=== PATIENT | male | born 1965 | race Caucasian/White ===

== ENCOUNTER 2024-05-14 08:17 | Day surgery (SDC) | payer OTHER, SELFPAY ==
--- NOTE | 2024-05-13 06:16 | W.PM.DSUDISC ---
Date of service: 05/14/24 Discharge Plan Disposition Patient Disposition: Home Condition: Good Discharge Details Reason For Visit: screening colonoscopy Attending Provider: Ruben Gutiérrez Primary Care Provider: Kayla Burns Home Meds and New Rx's Prescriptions: Continued atorvastatin 80 mg tablet 80 mg PO QHS Discontinued bisacodyl [Dulcolax (bisacodyl)] 5 mg tablet,delayed release (DR/EC) 5 mg PO ONCE Qty: 4 0RF Rx Instructions: Take per colonoscopy instructions provided by ordering providers office polyethylene glycol 3350 17 gram/dose powder 17 g PO ONCE Qty: 238 0RF Rx Instructions: Take per colonoscopy instructions provided by ordering providers office No Action aspirin [Aspirin Childrens] 81 mg tablet,chewable 81 mg PO DAILY Discharge Instructions Instructions: Colon polyps, Diverticulosis Additional Instructions: Serafin, I enjoyed meeting you today, and I hope you are comfortable through the colonoscopy. Everything went very smoothly. Your prep was excellent and I could see everything fine. I did find to remove a single small polyp from your rectum today. This will be sent off for testing since polyps 2, different types, and we use the information from that analysis to help guide the timing of future colonoscopies. Incidentally, you also have some diverticulosis. Diverticula are weak spots in the muscular layer of the colon wall that caused the inside lining (also known as mucosa) to pooch or pocket outward into the wall of the colon. These can get infected or inflamed during flareups that refer to as diverticulitis. Hopefully, years will never bother you. I will attach some basic information here about colon rectal polyps, as well as diverticulosis. If you need anything or have any questions, please do not hesitate to call, otherwise we will be in touch once the polyp report is complete. 1. If tolerated, consume a soft, low fiber diet for 1-2 days. 2. Do not drive, drink alcohol, operate machinery, make critical decisions, or do activities that require coordination or balance for 24 hours. 3. Because air was put into your colon during the procedure, expelling air from your rectum (passing gas or farting) is normal. 4. You may not have a bowel movement for 1-3 days because of the colonoscopy prep. This is normal. 5. Go directly to the emergency room if you notice any of the following: Develop chills (warm to touch), or if you have a thermometer and your temperature is above 101 Difficulty breathing or difficultly swallowing Persistent vomiting Severe abdominal pain, other than gas cramps Severe chest pain Black, tarry stools Any bleeding ? exceeding one tablespoon 6. Call your physician if the site where your intravenous was started becomes red, swollen, painful, and warm to touch. 7. Your physician has reviewed your pre-procedure medications. Please continue to take those medications as previously ordered. You will be given specific information/education regarding any changes to your medications before leaving. Stand Alone Forms: Anesthesia Discharge Inst., Efra Hoffman (DSU) Activity:: Activity as Tolerated Diet:: As Tolerated Discharge Orders Discharge Orders: Discharge Order (Routine); Ordered 05/13/24 Ordered By: Ruben Gutiérrez DS: Diagnosis Discharge Diagnosis (1) Encounter for screening colonoscopy: Status: Acute Asessment and Plan: Follow-up on polypectomy results
--- NOTE | 2024-05-13 06:17 | COLE_ITS ---
Date of service: 05/14/24 Time of Service: 10:24 Colonoscopy Report Date of procedure: 05/14/24 Pre-op diagnosis general: screening colonoscopy Post-op diagnosis procedure note: other (Diverticulosis, rectal polyp) Procedure: colonoscopy with polypectomy Surgeon: Ruben Gutiérrez Anesthesia Type: General:No Airway Estimated blood loss (mL): 5 Pathology: other (0.25 cm pedunculated rectal polyp) Complications: None Disposition: same day Indications: Serafin is a 59 year old man with a history of sessile serrated adenoma who needs his next screening colonoscopy Prep: Miralax/Dulcolax Procedure Start Time: 09:49 Procedure End Time: 10:12 Retraction Time: 15 Findings: Sigmoid diverticulosis, 0.25 cm pedunculated rectal polyp Procedure Description: After the induction of anesthesia, and with Serafin in left lateral decubitus position, I began by performing an external anorectal exam.? Perineum and skin were normal, as was the anal verge.? There was no evidence of external hemorrhoids.? Next, I performed a digital rectal exam.? I did not appreciate any abnormal findings.? Next, I advanced a colonoscope into the rectal vault.? I performed retroflexion.? This appeared normal.? Using insufflation, I then advanced the colonoscope beyond the rectal folds and into the sigmoid colon before advancing towards the cecum.? The quality of the prep was excellent.? The scope was noted to be in the cecum by identification of the ileocecal valve and appendiceal orifice.? I then began withdrawing the colonoscope using repeated irrigation as necessary for full evaluation of the colonic mucosa. There is sigmoid diverticulosis. ?Once the scope was withdrawn to the level of the rectum, great care was taken to examine portions of the rectal folds. In the lower portion of the rectal vault was a 0.25 cm pedunculated polyp. This was re moved with cold forceps polypectomy with minimal bleeding.? Finally, the scope was withdrawn and the patient was brought to the same-day surgery recovery unit as the anesthetic wore off. ?The findings and instructions were shared with the patient prior to discharge. [place] Bowel Prep [place] Bowel Prep Right Colon: 3 Left Colon: 3 Transverse Colon: 3 Total Score: 9
[2024-05-14 08:45] VITALS: BP 159/109; PULSE 79; RESP 16; TEMP 36.7; O2SAT 96
[2024-05-14] MEDS: Lactated Ringers 1,000 ML 80 ML IV (09:12)
--- NOTE | 2024-05-14 09:30 | ANES.PREOP_ITS ---
General Info Date of Service Date Performed: 05/14/24 Height: 5 ft 11 in Weight: 86 kg Body Mass Index (BMI): 26.4 Surgical Procedure: Operation Date: 05/14/24 09:50 Proposed Procedure Side Surgeon p Colonoscopy Ruben Gutiérrez MD Meds Allergies and Home Medications Allergies Allergy/AdvReac Type Severity Reaction Status Date / Time hyoscyamine AdvReac Severe Other (See Verified 05/14/24 08:42 Comment) Home Medication ?Medication ?Instructions ?Recorded atorvastatin 80 mg tablet 80 mg PO QHS 04/16/24 aspirin 81 mg chewable tablet 81 mg PO DAILY 05/14/24 (Aspirin Childrens) Current Visit Medications: Current Medications Generic Name Dose Route Start Last Admin Trade Name Freq PRN Reason Stop Dose Admin Ringer's Solution 1,000 mls @ 80 mls/hr 05/14/24 06:00 05/14/24 09:12 IV 05/14/24 23:59 80 mls/hr INFUSION ROSEY Administration IV Miscellaneous Supplies 1 each 05/14/24 06:00 Iv Access IV 05/14/24 23:59 DIRECTED ROSEY Ondansetron HCl 4 mg 05/13/24 06:15 Ondansetron 4 Mg/2 Ml Vial IVP 06/12/24 06:14 Q4H PRN PRN Nausea / Vomiting Sodium Chloride 0 ml 05/14/24 06:00 Normal Saline Flush 10 Ml Syr IV 05/14/24 23:59 PRN PRN Sodium Chloride 0 ml 05/14/24 06:00 Normal Saline 10 Ml Vial IJ 05/14/24 23:59 DIRECTED PRN Sterile Water 0 ml 05/14/24 06:00 Water,Injection,Sterile 10 Ml Vial IJ 05/14/24 23:59 DIRECTED PRN PFSH Active Problems Active Problems: Problem Status Onset Code Encounter for screening colonoscopy Acute Z12.11 Medical History Medical History Hypercholesteremia Family history of colon cancer in mother Adenomatous colon polyp Surgical History Surgical History History of appendectomy History of inguinal hernia repair History of colonoscopy with polypectomy (~2017) per referral done at [facility] Tobacco Smoking/Tobacco Use Status: Former Tobacco Use Alcohol Alcohol Intake: current Alcohol intake frequency: 0-2 drinks per day Alcohol type: wine Substance Use Substance use: Never Substance use type: does not use Details: alcohol: t-3, couple glasses Vital Signs and Lab Results Vital Signs Most Recent Vital Signs in EMR: Most Recent Vital Signs Temp Pulse Resp BP Pulse Ox 36.7 C 79 16 159/109 H 96 05/14/24 08:45 05/14/24 08:45 05/14/24 08:45 05/14/24 08:45 05/14/24 08:45 Lab Results Blood Type / Crossmatch: No Data to Display Complete Blood Count: No Data to Display Complete Metabolic Panel: No Data to Display Liver Function Panel: No Data to Display Coagulation Panel: No Data to Display Cardiac Panel: No Data to Display Arterial Blood Gas: No Data to Display Venous Blood Gas: No Data to Display Pancreas Panel: No Data to Display Thyroid Panel: No Data to Display Infectious Disease: No Data to Display Blood Cultures: No Data to Display Toxicology Panel: No Data to Display Anesthesia Assessment and Plan Anesthesia History Personal History: No History of Anesthesia Complications Family History: No Family History of Anesthesia Complications Exercise Tolerance Exercise Tolerance: Metabolic Equivalents>4 Pertinent Negatives Pertinent Negatives: No Symptoms of GERD Cardiac & Pulmonary Exam Cardiac Exam: Normal S1/S2 Heart Sounds Pulmonary Exam: Clear Bilateral Breath Sounds Implantable Cardiac Device Does patient have a Pacemaker or an ICD?: No Airway Exam Known Difficult Airway: No Mallampati Class: 1 Mouth Opening: Normal (> 3cm) Thyromental Distance: Greater than 3 cm Neck Range of Motion: Full ROM Neck Circumference: Normal Teeth Condition: Normal Dentition ASA Classification ASA Score: ASA 2 Emergency Case?: No NPO Status NPO Status: NPO Clears >2 hours, Solids >8 hours Anesthesia Plan Resuscitation Status: Full Code Anesthesia Technique: General Anesthesia Airway Planned: Natural Airway Monitors Used: Standard Monitors
[2024-05-14 09:31] VITALS: BMI 26.4
--- NOTE | 2024-05-14 10:11 | BOWEL_PTH ---
PATIENT: Serafin Navarro LOC: [facility] U#:[id number] AGE/SX: 59/M ROOM: RE05/14/[address]: Ruben Gutiérrez MD : 1965 BED: DIS: 05/14/2024 SPEC #: [id number] RECD: 05/14/24 13:05 STATUS: FREDY RE #: [id number] ERIBERTO: 05/14/24 10:[address]: Ruben Gutiérrez DEPT: Surgical Specimen RECD BY: Sheri Lees ENTERED: 05/14/24 13:06 SP TYPE: Bowel OTHR DR: Kayla Burns Tissues: 1 - BIOPSY BOWEL Procedures: GROSS AND MICRO LEVEL 4 Comments: [id number]
[2024-05-14 10:19] VITALS: BP 129/90; PULSE 76; RESP 16; TEMP 36.3; O2SAT 93
--- NOTE | 2024-05-14 10:22 | W.ANESPOSTOP ---
Postoperative Evaluation Date, Time and Location Date Performed: 05/14/24 Time Performed: 10:22 Patient Location: Day Surgery Unit Vital Signs Most Recent Imported Vital Signs: Most Recent Vital Signs Temp Pulse Resp BP Pulse Ox 36.7 C 79 16 159/109 H 96 05/14/24 08:45 05/14/24 08:45 05/14/24 08:45 05/14/24 08:45 05/14/24 08:45 Pain Score Most Recent Pain Score: Most Recent Pain Score Pain Level 0 05/14/24 08:45 Assessment Mental Status: Awake (Alert & Oriented to Patient Baseline) Airway and Respiratory Function: Patent airway with normal (patient baseline) respiratory exam Cardiovascular Function: Hemodynamically Stable Hydration Status: Adequately Hydrated Nausea & Vomiting: No Nausea or Vomiting Pain: Pt. Denies Any Pain Peripheral Nerve Block: Patient did not receive a nerve block
[2024-05-14 10:51] VITALS: BP 139/90; PULSE 66; RESP 16; TEMP 36.2; O2SAT 94
== END 2024-05-14 11:04 | disposition home or self-care (01) ==
LOC: SUR 08:18
PROVIDERS: PCP Family Medicine; Visit Provider Surgery
PROC: 0DJD8ZZ Inspection of Lower Intestinal Tract, Via Natural or Artificial Opening Endoscopic (ICD-10-PCS; CPT 45378; principal; 2024-05-14 09:45)
DX: Z12.11 Encounter for screening for malignant neoplasm of colon (principal); K62.1 Rectal polyp; K57.30 Diverticulosis of large intestine without perforation or abscess without bleeding
CPT/HCPCS: 45380; 88305; J2003; J2704